=== PATIENT | male | born 1975 | race Caucasian/White ===

== ENCOUNTER → 2017-08-21 | Outpatient (CLI) | payer BC | END | disposition home or self-care (01) | LOC: PCVCIMAG 08:36 | DX: I25.10 Atherosclerotic heart disease of native coronary artery without angina pectoris (principal); I27.20 Pulmonary hypertension, unspecified; I25.2 Old myocardial infarction; Z95.0 Presence of cardiac pacemaker | CPT/HCPCS: 93306 ==